=== PATIENT | female | born 1945 | race Caucasian/White ===

== ENCOUNTER 2018-10-12 15:10 | Emergency (ER) | payer MEDICARE, OTHER ==
[~2018-10-12] VITALS: Ht 160 cm; Wt 65.6 kg
[~2018-10-12 15:10] MED LIST: CALC600T4 PO; CHOL400C PO; CHON250C PO; DESO15OI TP; DORZ10DR7 EACHEYE; FLUO10CA13 PO; GLUC100015 PO; IBUP200T49 PO; MOME17SP INH; VITA1CAP7 PO
[2018-10-12 15:13] VITALS: BP 146/90
[2018-10-12] MEDS ORDERED: KETOROLAC 30 MG/1 ML IM ONE (16:00)
[2018-10-12] MEDS ORDERED: KETOROLAC 30 MG/1 ML ONE (16:05)
== END 2018-10-12 16:41 | disposition home or self-care (01) ==
LOC: ED 16:20
DX: G89.29 Other chronic pain (principal); M79.632 Pain in left forearm; M25.532 Pain in left wrist; Z90.49 Acquired absence of other specified parts of digestive tract; W22.8XXA Striking against or struck by other objects, initial encounter; Y93.89 Activity, other specified; Y92.009 Unspecified place in unspecified non-institutional (private) residence as the place of occurrence of the external cause; Y99.8 Other external cause status
CPT/HCPCS: 29125; 73090; 73110; 96372; 99283; J1885